=== PATIENT | male | born 1980 | race Caucasian/White ===

== ENCOUNTER 2017-04-26 05:18 | Observation (INO) | payer BC, OTHER ==
[~2017-04-26] VITALS: Wt 80.3 kg
--- NOTE | ~2017-04-26 | O ---
[address] [address] OPERATIVE REPORT Name: JONO ALCANTAR Room #: 150-5 ADM IN M.R.#: [id number] Admission: 04/26/17 Attend Phys: Xavier Alanis MD Discharge: Date of : 82 Report #: [id number] THIS REPORT FOR: //name// CC: FAM unknown Xavier Alanis DATE OF SERVICE: 04/26/2017 SERVICE: Orthopedics. FACILITY: [facility]. SURGEON: Xavier Alanis MD. DIRECTOR OF DESIGN: None. PREOPERATIVE DIAGNOSES: 1. Left knee pain. 2. Left knee genu varum. POSTOPERATIVE DIAGNOSES: 1. Left knee pain. 2. Left knee genu varum. 3. Left knee medial plica. PROCEDURE: 1. Left knee diagnostic arthroscopy with medial plica excision. 2. Left knee high tibial osteotomy. COMPLICATIONS: None. DRAINS: None. SPECIMENS: None. ESTIMATED BLOOD LOSS: 20 mL. ANESTHESIA TYPE: General with regional (adductor canal). FINDINGS: 1. 13-degree Arthrex correction with iBalance PEEK implant with 26-mm screws proximally and 40 and 44-mm screws distally measuring anterior to posterior with OSferion wedge x 2 and cancellous allograft chips. 2. Strong palpable pulse at the conclusion of the case. 3. Weightbearing as tolerated with crutches for 6 weeks until radiographic signs of healing and range of motion as tolerated. [address] [address] OPERATIVE REPORT Name: JONO ALCANTAR Room #: 150-5 [facility] IN ..#: [id number] Admission: 04/26/17 Attend Phys: Xavier Alanis MD Discharge: Date of : 82 Report #: [id number] HISTORY AND INDICATIONS: The patient is a 36-year-old gentleman with history of severe varus knees bilaterally. He has a family history of early onset medial compartment osteoarthritis including in his father and seeing his father's condition, he had decided he would like to prevent this if possible. He had onset of medial-sided knee pain bilaterally, left worse than right that was recalcitrant to conservative measures including activity modification and rest and oral medicines. He had weightbearing x-rays that showed severe genu varum and we had a discussion about optimal treatment measures. The MRI preoperatively showed that he had intact articular cartilage and I have explained to him that corrective osteotomy would be most beneficial prior to onset of articular cartilage pathology and he was in agreement. Therefore, plans were made for high tibial osteotomy with a diagnostic arthroscopy. We templated to 12.5-degree correction in order to correct him to just past midline. Because he has had normal articular cartilage, a neutral to slightly valgus alignment is optimal for him. He does not need correction into the lateral compartment. PROCEDURE IN DETAIL: After the left lower extremity was correctly identified as the operative extremity, the patient underwent placement of a single shot regional nerve block by Anesthesia team. He was then taken to the operating room and placed supine on operating table. General anesthesia was induced without complication. Tourniquet was applied on left leg. Prophylactic antibiotics with 2 grams Ancef were administered at appropriate time. Left leg was prepped and draped in standard sterile fashion. Timeout procedure was performed. Standard anterolateral and anteromedial arthroscopy portals were made and diagnostic arthroscopy revealed intact articular cartilage throughout. The medial and lateral menisci were intact. The ACL and PCL were intact. The menisci were stable to probing as well. There was a medial plica present extending across the distal anterior aspect of the medial femoral condyle with some limited chondromalacia present here. Because we are correcting the varus deformity, this will increase stresses on the medial soft tissues and so, we felt that it was most important to resect this plica to minimize chondral wear from the intra-articular soft tissues. So, the shaver was used to complete plica excision. The arthroscopic effusion was drained and then attention was turned towards the tibia. Esmarch was utilized. The tourniquet was inflated to 300 mmHg. Total tourniquet time was 135 minutes. An 8.5-mm incision was made based over the proximal aspect of the medial tibia. Full thickness skin flaps were developed down to the investing fascia. An L-shaped incision was made in the periosteum and the MCL anterior fibers were split transversely to allow valgus gapping of the tibia. The hamstring tendons were protected as was the posterior half of the MCL. This was all elevated in one subperiosteal flap bluntly and then the patellar tendon was exposed and retractor was placed behind the patellar tendon at the tibial insertion. At this point, the Arthrex iBalance device was placed [address] [address] OPERATIVE REPORT Name: JONO ALCANTAR Room #: 150-5 [facility] IN M.R.#: [id number] Admission: 04/26/17 Attend Phys: Xavier Alanis MD Discharge: Date of : 82 Report #: [id number] using a cross-table perfect lateral x-ray of the tibia and it was fixed to match the patient's posterior tibial slope. We then adjusted it. Initially, he had been templated for a size medium implant based on the measurements that I took on the MRI; however, when the outrigger was placed with this medial drill guide, the pivot point was not far enough lateral and so, I had to remove the outrigger and then placed the size large outrigger and drill guide and this put the pivot point in appropriate position distal to the lateral tibial plateau articular surface and off the lateral cortex in appropriate position. This allowed for placement of the pivot pin in the lateral aspect of the proximal tibia. Prior to this, a blunt dissection had been performed to dissect the neurovascular bundle off of the popliteus and retractor was placed and maintained throughout to protect this tissue. The ArthSlinky iBalance system was used to then place all retractors with the size large cutting block and then the oscillating saw was used to perform the cuts utilizing the medial, lateral, anterior, and posterior cutting guards to prevent any concomitant injury. This was then removed and then the osteotome was placed along the posterior osteotomy with the finger placed along the posterior aspect of the tibia as well following the osteotome until it completed the osteotomy at the posterolateral corner. The vessel and nerve were protected throughout. The knee was then stressed in a valgus fashion, which created gapping at the medial tibia. The tibia was then sequentially jacked open with the expansion monserrat into a 12-degree correction. I used the external alignment guide to measure the center of the ankle to the center of the femoral head and this still had the alignment just on the medial side of midline. So, I went ahead and proceeded with the 13-degree correction and this placed the alignment center on the medial slope of the lateral tibial spine and essentially right down the middle of the tibia and over the ankle. This was confirmed more than once until the final position was selected and we did go with the size large 13-degree Arthrex implant. This was impacted into position after 2 OSferion wedges were placed deep into the bed and then all autograft bone that was salvaged was packed into the osteotomy site as well and then the implant was placed with excellent cortical contact achieved and then compression was achieved proximally and distally with the PEEK 6.5 screws proximally and 4.5 screws distally. There was good compression achieved with excellent bony contact on the implant all the way around and then the cancellous chips were then packed into the anterior aspect of the osteotomy providing a good bony fill. At this point, the tourniquet was let down and hemostasis achieved. There was no significant bleeding coming from the back of the knee. The wound was copiously irrigated and then the anterior superior corner of the periosteal flap was able to be repaired with a 0 Vicryl suture over the plate and then the skin layer was closed with 0 Vicryl followed by 2-0 Vicryl and a running subcuticular 3-0 Monocryl and Steri-Strips. The arthroscopy incisions were closed as well. Sterile dressing was applied followed by compression stocking, a Polar Care, and a knee immobilizer. At the conclusion of the case, patient had a very strong palpable dorsalis pedis [facility] [address] [place] [address] OPERATIVE REPORT Name: JONO ALCANTAR Room #: 150-5 [facility] IN M.R.#: [id number] Admission: 04/26/17 Attend Phys: Xavier Alanis MD Discharge: Date of : 82 Report #: [id number] pulse, which was symmetric with the contralateral side and symmetric with preop. There were no complications. All counts were recorded as correct. <ELECTRONICALLY SIGNED> By: Xavier Alanis MD 04/26/17 1757 [id number] 1753 Xavier Alanis MD /nt
[2017-04-26 11:26] VITALS: BP 120/75
[2017-04-26 20:10] VITALS: BP 122/77
[2017-04-26 22:03] VITALS: BP 127/79
[2017-04-26 22:06] VITALS: BP 128/75
[2017-04-26 22:08] VITALS: BP 125/71
[2017-04-27 00:23] VITALS: BP 120/63
[2017-04-27 04:37] VITALS: BP 112/67
[2017-04-27 10:48] VITALS: BP 112/67
== END 2017-04-27 14:50 | disposition home or self-care (01) ==
LOC: 4N 05:18 → TBA 05:18 → PRE 09:14 → 4N 19:57 → ENTRNSPT 04-27 13:46 → EDTRNSPTSTS 04-27 14:20 → 4N 04-27 14:50
DX: M21.162 Varus deformity, not elsewhere classified, left knee (principal); M67.52 Plica syndrome, left knee

== ENCOUNTER 2017-08-09 05:30 | Observation (INO) | payer BC, OTHER ==
[~2017-08-09] VITALS: Ht 177.8 cm; Wt 77.1 kg
[2017-08-09] VITALS (9 sets, daily range): BP systolic 124–149; BP diastolic 75–94
--- NOTE | ~2017-08-09 | O ---
[address] [address] OPERATIVE REPORT Name: JONO ALCANTAR Room #: 411-P [facility]..#: [id number] Admission: 08/09/17 Attend Phys: Xavier Alanis MD Discharge: Date of : 82 Report #: [id number] THIS REPORT FOR: //name// CC: FAM unknown Xavier Alanis DATE OF SERVICE: 08/09/2017 SERVICE: Orthopedics. FACILITY: [facility]. SURGEON: Xavier Alanis MD PERSONAL CARER: Fabi Mckeon, nurse practitioner. INDICATION FOR PERSONAL CARER: Leg positioning, instrumentation and management as well as obtaining a corrective alignment and final fixation. PREOPERATIVE DIAGNOSES: 1. Right knee pain. 2. Genu varum, right knee. 3. Chondromalacia, right knee. POSTOPERATIVE DIAGNOSES: 1. Right knee pain. 2. Genu varum, right knee. 3. Medial plica syndrome, right knee. 4. Chondromalacia, right knee. PROCEDURE 1. Open high tibial osteotomy, right knee. 2. Right knee diagnostic arthroscopy with plica resection. 3. Right knee arthroscopic chondroplasty of the medial femoral condyle. ANESTHESIA TYPE: General with regional. COMPLICATIONS: None. DRAINS: None. SPECIMENS: None. FINDINGS: Arthrex 13 degree, size large tibial implant with 26 mm proximal screws and 44 mm distal screws. [address] [address] OPERATIVE REPORT Name: JONO ALCANTAR Room #: 411-P [facility]#: [id number] Admission: 08/09/17 Attend Phys: Xavier Alanis MD Discharge: Date of : 82 Report #: [id number] HISTORY AND INDICATIONS: The patient is a 36-year-old gentleman with a history of bilateral genu varum and knee pain. He had been treated with high tibial osteotomy on the left knee, which provided correction of the deformity and he was happy with his outcome and wished to have a similar procedure on the contralateral extremity. Risks, benefits, alternatives and indications for surgery were reviewed with him in detail. Risks include but not limited to pain, bleeding, infection, injury to nerves or blood vessels, malunion, nonunion, need for further surgery including revision as well as stiffness and complications related to anesthesia such as stroke, heart attack, pulmonary complications, thromboembolic disease and . Despite these risks, he wished to proceed. PROCEDURE IN DETAIL: After right leg was correctly identified as the operative extremity, the patient was taken to the operating room. After a regional nerve block had been completed, he was placed supine on the operating table. General anesthesia was induced without complication. He was padded appropriately. Prophylactic antibiotics were administered at appropriate time. Tourniquet was applied to the right leg. The right leg was prepped and draped in standard sterile fashion. Time-out procedure was performed. Standard anterolateral viewing portals as well as anterior medial working portals were established in typical fashion. Diagnostic arthroscopy was performed. The articular cartilage was normal throughout except for some increased wear and chondromalacia on the more lateral aspect of the medial femoral condyle due to the significant varus deformity of his knee. The shaver was used to complete a chondroplasty in this area and residual cartilage was stable in this location. The menisci were normal. The cruciates were normal and the articular cartilage was normal, otherwise other than some abrasion, chondromalacia present on the anterior proximal medial aspect of the medial femoral condyle, which was secondary to abrasion from a medial plica. Shaver was used to perform resection of the plica arthroscopically. Instruments were then removed from the knee. The portal sites were closed. Esmarch was used to exsanguinate the leg and tourniquet was inflated to 300 mmHg. Total tourniquet time was 111 minutes. An incision was made on the medial aspect of the tibia. Dissection was taken down to the investing fascia, which was incised and then the periosteum and the MCL was incised in an L-shaped fashion retracted posteriorly with the hamstring tendons allowing access to the proximal tibia. Exposure was taken around the back side to protect the neurovascular bundle throughout. The outrigger was then fashioned to a size large implant, which was templated on the preoperative MRI and then in a typical fashion the Arthrex iBalance system was placed medially, fixed to the tibia with good bony contact and then the osteotomy was cut. The templating and the contralateral extremity indicated that a size large 13 degree implant was most appropriate. We used the distractor device to create [address] [address] OPERATIVE REPORT Name: JONO ALCANTAR Room #: 411-P ADM [facility] N[facility]ajan#: [id number] Admission: 08/09/17 Attend Phys: Xavier Alanis MD Discharge: Date of : 82 Report #: [id number] enough space to place this implant into position, held it in a provisional fixation and then used the guide donaldo to assess the overall alignment after which the alignment as it did match his contralateral extremity and provided for a straight leg with the weightbearing axis through the central portion of the knee in line with the femoral head and the central portion of the ankle; therefore, accepted this as the final alignment, placed the corresponding implant into position after placing 2 OSferion wedges in the tibia and then secured the implant into position. Note that autograft bone was placed into the defect prior to the implant and then cancellous allograft chips were placed in the anterior aspect of the osteotomy with some additional autologous bone that was obtained from the reaming. After this was completed, final x-rays were taken of this alignment and then the fixation screws were placed in position and again final x-rays were taken. The distal anterior screw did break at the head, but the shafting screw remained locked into the plate and I felt that stability was still present, that the entire fixation is still present and that would be an extensive effort to remove it should that screw ever need to be removed. An incision on the anterior aspect of the leg to advance the screw in an antegrade fashion will allow successful removal of the screw. At this point, the wound was copiously irrigated, tourniquet was let down. The deep layer was closed with 0 Vicryl suture including the periosteal flap and MCL and then the skin was closed in layers with 2-0 Vicryl suture and a running subcuticular 3-0 Monocryl and Steri-Strips. Sterile dressing was applied. The patient was awakened from anesthesia and taken to recovery room in stable condition. All counts were reported as correct. <ELECTRONICALLY SIGNED> By: Xavier Alanis MD 08/10/17 0956 [id number] 0944 Xavier Alanis MD /nt
[2017-08-10 04:00] VITALS: BP 127/62
[2017-08-10 07:36] VITALS: BP 133/75
[2017-08-10 09:36] VITALS: BP 133/75
== END 2017-08-10 10:30 | disposition home or self-care (01) ==
LOC: TBA 05:30 → OR 05:30 → 4N 13:31 → OR 14:59 → 4N 08-10 10:30
DX: M25.561 Pain in right knee (principal); M21.161 Varus deformity, not elsewhere classified, right knee; M67.51 Plica syndrome, right knee; M94.261 Chondromalacia, right knee; M25.562 Pain in left knee; M17.12 Unilateral primary osteoarthritis, left knee; M17.11 Unilateral primary osteoarthritis, right knee
CPT/HCPCS: 50010; 50101; 50415; 50445; 50951; 50954; 51038; 53000; 54170; 56525; 56527; 56528; 62110; 62900; 64037; 64039; 70005